=== PATIENT | female | born 2000 | race Caucasian/White ===

== ENCOUNTER 2019-06-30 14:50 | Emergency (ER) | payer OTHER, SELFPAY ==
--- NOTE | 2019-06-30 15:04 | ED.GENADULT ---
HPI - General Adult General Chief complaint: Upper Respiratory Infection Stated complaint: sore throat/ear pn/wilkinson Time Seen by Provider: 06/30/19 15:04 Source: patient and RN notes reviewed Mode of arrival: ambulatory Limitations: no limitations History of Present Illness HPI narrative: 18-year-old female presents with complaints of sore throat and right otalgia for the past 3 days. Tylenol (last this a.m.), Ibuprofen (last for 07/2019), and 2 year old Amoxicillin with little relief. No sick exposures. No cough or chest congestion. No high fevers, drooling, neck or throat swelling. Pain is bilateral. Hurts to swallow. No voice change. Exacerbation factors consist of eating and drinking. No rhinorrhea or nasal congestion. No nausea, vomiting, or abdominal pain. Tolerating liquids well. Denies chills, dyspnea, difficulty swallowing, jaw pain, dental pain, facial pain, foreign body sensation, and rash. Remains active. Mihaela denies being , LMP 2-3 weeks ago and on control. No recent recent travel. Some parts of this dictation were generated by voice recognition software and may contain typographical and/or grammatical inaccuracies. Related Data Home Medications Medication Instructions Recorded Confirmed buspirone 10 mg PO TID 06/30/19 06/30/19 desvenlafaxine 50 mg PO DAILY 06/30/19 06/30/19 doxazosin 1 mg PO DAILY 06/30/19 06/30/19 gabapentin 300 mg PO BID 06/30/19 06/30/19 gabapentin 600 mg PO HS 06/30/19 06/30/19 glycopyrrolate 1 mg PO BID 06/30/19 06/30/19 insulin glargine [Lantus U-100 80 unit SUBCUT HS 06/30/19 06/30/19 Insulin] insulin lispro [Humalog KwikPen See Rx Instructions .ROUTE .COMPLEX 06/30/19 06/30/19 Insulin] lorazepam [Ativan] 0.5 mg PO Q4-5H PRN 06/30/19 06/30/19 norethindrone (contraceptive) 0.35 mg PO DAILY 06/30/19 06/30/19 [Kim] quetiapine 300 mg PO HS 06/30/19 06/30/19 trazodone 150 mg PO HS 06/30/19 06/30/19 Allergies Allergy/AdvReac Type Severity Reaction Status Date / Time No Known Allergies Allergy Mild Verified 06/30/19 15:10 Review of Systems Review of Systems: Narrative: CONSTITUTIONAL: Denies fever, chills, sweats. EYES: Denies visual changes, redness, discharge. ENT: Denies rhinorrhea, congestion. Complains of sore throat, RT otalgia. CARDIOVASCULAR: Denies chest pain, palpitations, edema. RESPIRATORY: Denies dyspnea, wheezing, cough. GASTROINTESTINAL: Denies abdominal pain, nausea, vomiting, diarrhea. GENITOURINARY: Denies dysuria, hematuria, abnormal discharge. SKIN: Denies rash or itching. MUSCULOSKELETAL: Denies acute back pain, joint pain, or myalgia. NEUROLOGIC: Denies numbness or focal weakness. PSYCHIATRIC: Denies anxiety or depression. All systems reviewed & are unremarkable except as noted in HPI and below. [facility] Past Medical History Medical History (Updated 06/30/19 @ 18:09 by ALVIN Kay) Anxiety Bipolar disorder Borderline personality disorder Depression Type 1 diabetes Surgical History Surgical History History of incision and drainage Family History Family History Sibling Asthma Grandparent Diabetes mellitus Social History Social History Smoking status: Never smoker Second hand tobacco smoke exposure: No Alcohol intake: never Substance use: never Living arrangements: with family Occupation/Education: student Gender identity (if verbalized by the patient): Female Comments At time of signature, agree with nurse past medical, surgical, social, and family history. There is no relevant family history pertinent to the presenting complaint. Exam Narrative: Exam Narrative: GENERAL: This is a well-nourished, well-developed patient, in no apparent distress. Speaks in full sentences without deficits and ambulates with s
[2019-06-30 15:11] VITALS: BP 104/33; PULSE 97; RESP 20; TEMP 36.7; O2SAT 97
== END 2019-06-30 15:49 | disposition home or self-care (01) ==
PROVIDERS: Emergency Provider Nurse Practitioner Family; PCP Family Medicine
DX: J02.0 Streptococcal pharyngitis (principal); F41.9 Anxiety disorder, unspecified; F31.9 Bipolar disorder, unspecified; E10.9 Type 1 diabetes mellitus without complications
CPT/HCPCS: 87804; 87880; 99213; G0463